=== PATIENT | female | born 1955 | race Caucasian/White ===

== ENCOUNTER → 2018-09-22 | Outpatient (CLI) | payer BC | LOC: M.RAD 15:50 | DX: Z01.419 Encounter for gynecological examination (general) (routine) without abnormal findings (principal); Z12.31 Encounter for screening mammogram for malignant neoplasm of breast; M85.89 Other specified disorders of bone density and structure, multiple sites; Z78.0 Asymptomatic menopausal state ==

== ENCOUNTER → 2018-09-25 | Outpatient (CLI) | payer BC | LOC: M.RAD 09-23 13:06 | DX: N63.11 Unspecified lump in the right breast, upper outer quadrant (principal); R92.2 Inconclusive mammogram ==

== ENCOUNTER → 2018-09-29 | Outpatient (CLI) | payer BC ==
--- NOTE | 2018-10-02 13:46 | PATH ---
[address] [address] PATHOLOGY RPT PROCEDURE Name: FOUZIA SINGH Room: [facility] LUIS MANUEL [place]#: [id number] Admission: 09/29/18 Date of : 59 Discharge: Report #: [id number] Path Case #: [id number] [facility] Accession Number: [id number] . 01 Material submitted: . RIGHT BREAST TISSUE . 01 Clinical history: . 2.3 x 1.7 x 1.6 cm superior areolar . 02 Diagnosis: Right breast tissue, superior / subareolar, image guided core biopsies: - Benign breast tissue with fibrosis, rare luminal calcification and rare stromal histocytes containing black pigment suggesting tattooing, negative for atypia. See comment. QTP/10/01/2018 . 02 Comment: Reviewed with Dr. Mireya Metzger who agrees with the diagnosis. (DENISE:[facility] 10/01/2018) . 02 Addendum: . Upon evaluation of additional levels, the "black pigment" seen on initial sections which were suggestive of tattooing, have a more granular brown appearance and is thought to more likely represent hemosiderin deposition indicative of remote hemorrhage. (DENISE:[facility] 10/02/2018) . Professional services performed by [facility] at [facility], [address] [place] [address]. Technical services performed at [address] [place] [address], [address], [place] [address]. [facility]/10/02/2018 Addendum Electronically Signed by Yao Rogers MD, Pathologist . 02 Electronically signed: . Yao Rogers MD, Pathologist NPI- [id number] . 01 Gross description: . Received in formalin labeled "Fouzia Singh, right breast," are multiple needle cores of yellow-paulnio fibrofatty tissue measuring 2.2 x 1.6 x 0.4 cm in aggregate dimensions. The tissue is submitted in its entirety in cassettes A1 through A3. The cold ischemic time is 2 minutes. The total formalin fixation time is 33 hours and 18 minutes. (TSD; 09/29/2018) TOB/TOB . 02 Pathologist provided ICD-10: [place] [address] PATHOLOGY RPT PROCEDURE Name: FOUZIA SINGH JOYCE Room: [facility].#: [id number] Admission: 09/29/18 Date of : 59 Discharge: Report #: [id number] Path Case #: [id number] N60.31, N64.89 . 02 [facility] . [id number] Specimen Comment: A courtesy copy of this report has been sent to Specimen Comment: [phone]. Specimen Comment: Report sent to ,DR IBRAHIM / DR JAY Performed at: [address] [facility] [address], [place], [place] [id number] MD Juan Elias MD Phone: [phone] Performed at: 02 [facility] [address], [place], [place] [id number] MD Yao Rogers MD Phone: [phone]
== END | disposition home or self-care (01) ==
LOC: M.ULTRA 08:16
DX: N60.31 Fibrosclerosis of right breast (principal); N64.89 Other specified disorders of breast; R92.1 Mammographic calcification found on diagnostic imaging of breast

== ENCOUNTER → 2019-05-04 | Outpatient (CLI) | payer BC | LOC: M.RAD 04-30 10:28 | DX: N63.11 Unspecified lump in the right breast, upper outer quadrant (principal) ==

== ENCOUNTER → 2021-03-14 | Outpatient (CLI) | payer OTHER | LOC: M.RAD 06:51 | PROVIDERS: ATTEND Family Medicine | DX: Z12.31 Encounter for screening mammogram for malignant neoplasm of breast (principal); N64.89 Other specified disorders of breast ==

== ENCOUNTER → 2021-04-10 | Outpatient (CLI) | payer OTHER | LOC: M.ULTRA 09:00 | PROVIDERS: ATTEND Family Medicine | DX: Z01.419 Encounter for gynecological examination (general) (routine) without abnormal findings (principal); N63.10 Unspecified lump in the right breast, unspecified quadrant; R92.2 Inconclusive mammogram; G47.30 Sleep apnea, unspecified; R35.0 Frequency of micturition ==